=== PATIENT | male | born 1935 | race Caucasian/White ===

== ENCOUNTER 2018-01-24 12:12 | Observation (INO) | payer MEDICARE, BC ==
[2018-01-23 10:56] LABS: BASOPHILS # (AUTO) 0.1 (0.0-0.1); BASOPHILS % 0.6 % (0.0-1.0); EOSINOPHILS # (AUTO) 0.4 (0.0-0.4); EOSINOPHILS % 3.4 % (0.0-6.0); HEMATOCRIT 36.7 % (38.2-49.6); LYMPHOCYTES # (AUTO) 3.1 (1.0-3.2); LYMPHOCYTES % 25.6 % (18.0-39.1); MEAN CORPUSCULAR HEMOGLOBIN 32.3 pg (28-32); MEAN CORPUSCULAR HGB CONC 35.4 g/dL (31-35); MEAN CORPUSCULAR VOLUME 91.3 fL (81-99); MONOCYTES # (AUTO) 0.7 (0.2-0.8); MONOCYTES % 5.5 % (4.4-11.3); NEUTROPHILS # (AUTO) 7.7 (2.1-6.9); NEUTROPHILS % 64.1 % (38.7-80.0); PLATELET COUNT 236 x10e3/uL (140-360); RED BLOOD COUNT 4.02 x10e6/uL (4.3-5.7); RED CELL DISTRIBUTION WIDTH 13.7 % (11.7-14.4)
[2018-01-23 11:07] LABS: INR 1.03; PROTHROMBIN TIME 12.7 seconds (11.9-14.5)
[2018-01-23 11:17] LABS: ALBUMIN 3.7 g/dL (3.5-5.0); ALBUMIN/GLOBULIN RATIO 0.9 (0.8-2.0); ANION GAP 15.3 mmol/L (8-16); CALCIUM 9.8 mg/dL (8.4-10.2); CREATININE, SERUM 1.54 mg/dL (0.72-1.25); POTASSIUM 4.3 mmol/L (3.5-5.1)
[2018-01-24] VITALS (18 sets, daily range): BP systolic 75–171; BP diastolic 55–91
[~2018-01-24] VITALS: Ht 172.7 cm; Wt 93.9 kg
[~2018-01-24 12:12] MED LIST: ARTHRITIS PAIN650 M3 PO; ASPIR 8181 MG PO; ATORVASTATIN CA20 MG PO; FINASTERIDE5 MG PO; FUROSEMIDE PO; FUROSEMIDE40 MG PO; GLIMEPIRIDE2 MG PO; IBUPROFEN200 MG PO; KLOR-CON 88 MEQ PO; KLOR-CON PO; METFORMIN HCL500 MG PO; RAMIPRIL2.5 MG PO; SPIRONOLACTONE PO; TAMSULOSIN HCL0.4 MG PO; VERAPAMIL ER120 MG PO; VERAPAMIL ER240 MG PO; [UNRECOGNIZED DRUG - OTHER] TOP
[2018-01-24] MEDS ORDERED: VERAPAMIL HCL 2.5 MG/ML 2 ML VIAL ONE (15:49)
[2018-01-24] MEDS ORDERED: HEPARIN SOD (PORCINE) 1000 UNIT/ML 30ML ONE (15:49)
[2018-01-24] MEDS ORDERED: LIDOCAINE HCL 2% LOCAL 20 ML VIAL ONE (15:50)
[2018-01-24] MEDS ORDERED: MIDAZOLAM HCL 2 MG/2 ML VIAL ONE (15:50)
[2018-01-24] MEDS ORDERED: FENTANYL CITRATE/PF 100MCG/2 ML INJ ONE (15:50)
[2018-01-24] MEDS ORDERED: SODIUM CHLORIDE 0.9% 1000ML 1,000 ML ONE (15:51)
[2018-01-24] MEDS ORDERED: IOPAMIDOL 370 MG/ML 200 ML INFUS..BTL INJ ONE ×2 (15:51→17:24)
[2018-01-24] MEDS ORDERED: NITROGLYCERIN/D5W 200 MCG/ML 250 ML ONE (15:51)
[2018-01-24] MEDS ORDERED: HEPARIN SOD/SOD CHLORIDE 2,000 ML ONE (15:51)
[2018-01-24] MEDS ORDERED: PRASUGREL 10 MG TAB ONE (17:35)
[2018-01-24] MEDS ORDERED: ASPIRIN 325 MG TAB ONE (17:40)
[2018-01-24] MEDS ORDERED: DEXTROSE 50% SYRINGE 50 ML IV PRN (18:15)
--- NOTE | 2018-01-24 18:47 | Operative Report ---
DATE OF PROCEDURE: January 24, 2018 INDICATIONS 1. Coronary artery disease, unstable angina. 2. Congestive heart failure. PROCEDURES PERFORMED 1. Left heart catheterization. 2. Selective coronary angiography. 3. Right heart catheterization. 4. Stent placement in the proximal left anterior descending artery. 5. Deployment of right wrist transradial band. COMPLICATIONS: None. RECOMMENDATIONS: Dual antiplatelet therapy for at least 6 months. Access obtained in the right radial artery. A 5-[place]ruguayan sheath was placed. Access obtained in the right cephalic vein. A 6-[place] sheath was placed for balloon flotation. Right heart catheterization performed with findings as described below. Right atrial pressure 8 mmHg. Right ventricular pressure 38/4 mmHg. Pulmonary artery pressure 37/16 with a mean of 25 mmHg. Pulmonary capillary wedge pressure 11 mmHg. Cardiac output 4.8 L a minute. Cardiac index 2.3 L per minute per meter squared. Left heart catheterization demonstrated 80% proximal left anterior descending artery for which the patient received 10,000 units of intra-arterial heparin and ACT of 275. A short wire was advanced across the lesion for support. Primary stent 2.75 x 20 mm Synergy at 14 atmospheres. Excellent end result, less than 10% residual stenosis. CATHRYN-3 flow. No complications. Right wrist TR band applied. The 7-[place] sheath in the right brachial were removed under manual pressure. Patient observed in the hospital overnight. Discharged home the next day in stable condition. Job#: [id number] PADMINI
[2018-01-25] VITALS: BP 142/80
[2018-01-25] MEDS: INSULIN LISPRO 100 UNIT/1 ML 3ML VIAL SQ SCH ×3 (00:46→12:10)
[2018-01-25 01:00] VITALS: BP 132/78
[2018-01-25 04:00] VITALS: BP 121/65
[2018-01-25 07:40] VITALS: BP 109/53
[2018-01-25 09:30] VITALS: BP 109/53
[2018-01-25 11:24] VITALS: BP 148/63
[2018-01-25] MEDS ORDERED: FINASTERIDE 5 MG TAB PO SCH (13:00)
[2018-01-25] MEDS ORDERED: VERAPAMIL HCL 120 MG TABSR PO SCH (13:00)
[2018-01-25] MEDS ORDERED: TAMSULOSIN HCL 0.4 MG CAP PO SCH (13:00)
[2018-01-25] MEDS ORDERED: FUROSEMIDE 40 MG TAB PO SCH (13:00)
[2018-01-25] MEDS ORDERED: RAMIPRIL 2.5 MG CAP PO SCH (13:00)
[2018-01-25] MEDS ORDERED: POTASSIUM CHLORIDE 10 MEQ TABCR PO SCH (14:00)
[2018-01-25] MEDS ORDERED: POTASSIUM CHLORIDE 8 MEQ PO SCH (15:00)
[2018-01-25] MEDS ORDERED: GLIMEPIRIDE 2 MG TAB PO SCH (17:00)
[2018-01-25] MEDS ORDERED: ATORVASTATIN 20 MG TAB PO SCH (21:00)
== END 2018-01-25 14:23 | disposition home or self-care (01) ==
LOC: CATH LAB 12:12 → IMCU 22:54
PROVIDERS: ADMIT Internal Medicine Interventional Cardiology; ATTEND Internal Medicine Interventional Cardiology
DX: I25.110 Atherosclerotic heart disease of native coronary artery with unstable angina pectoris (principal); I27.20 Pulmonary hypertension, unspecified; I87.2 Venous insufficiency (chronic) (peripheral); I95.89 Other hypotension; I50.9 Heart failure, unspecified
CPT/HCPCS: 93454; C9600; 36415; 80053; 80061; 82948; 85025; 85610; 93451; C1766; C1874; G0378; J1644; J2001; J2250; J7030; Q9967

== ENCOUNTER → 2018-06-26 | Outpatient (CLI) | payer MEDICARE, BC ==
--- NOTE | 2018-07-02 22:41 | Pulmonary Function Test ---
DATE OF STUDY: PATIENT OF: Dr. Jackson. Restrictive spirometry. Forced vital capacity 1.98 L, 54% of predicted. FEV-1 of 1.66 L, 65% of predicted. FEV-1:FVC ratio 85%. FEF 25-75 is 118%. Diffusion capacity is markedly reduced 6.84, 27% of predicted, suggesting loss of alveolar units or ventilation perfusion balance. Lung volumes are reduced. Total lung capacity 3.54 L, 55% of predicted. Restriction may be secondary to morbid obesity, congestive heart failure, parenchymal pulmonary disease, neuromuscular disease, chest wall disease, pleural disease, or diaphragmatic disease. Clinical correlation required. Job#: [id number] CF
== END ==
LOC: RESP 09:02
PROVIDERS: ATTEND Internal Medicine Pulmonary Disease
DX: J84.10 Pulmonary fibrosis, unspecified (principal); M15.9 Polyosteoarthritis, unspecified
CPT/HCPCS: 86039; 94060; 94727; 94729

== ENCOUNTER 2018-11-01 12:11 | Observation (INO) | payer MEDICARE, BC ==
[~2018-11-01] VITALS: Ht 172.7 cm; Wt 86.2 kg
--- OUTSIDE RECORDS SUMMARY | 2018-11-01 12:15 | XMS REPORT ---
Author Author [facility] Address Unknown Phone Unavailable Care Team Providers Care Director Zone Name Role Phone KEON WOODSON Unavailable Unavailable Problems This patient has no known problems. Allergies, Adverse Reactions, Alerts This patient has no known allergies or adverse reactions. Medications This patient has no known medications. Results Test Description Test Time Test Comments Text Results Atomic Results Result Comments CT CHEST W 2018-04-12 13:24:00 [facility] [address] [address] Patient Name: NICOLETTE CLOUD MR #: [id number] : 1935 Age/Sex: 82/M Req #: [id number] Adm Physician: Ordered by: KEON WOODSON MD Report #: [id number] Location: CT Room/Bed: Procedure: [id number] CT/CT CHEST W Exam Date: 04/12/18 Exam Time: 1210 REPORT STATUS: Signed EXAMINATION: CT of the chest with contrast, PE protocol. TECHNIQUE: Spiral CT images of the chest were performed from the lung apices through the level of the adrenal glands after the IV administration of 100 cc of Isovue-370. Thin section reconstructions were obtained with special concentration on the pulmonary arteries. COMPARISON: <none> CLINICAL HISTORY:Shortness of breath DISCUSSION: Vasculature: The main pulmonary artery, right and left pulmonary arteries, and their visualized lobar and segmental branches are patent, without filling defect. The pulmonary outflow tract is of normal caliber. There is no ectasia or aneurysmal dilatation of the thoracic aorta. Atherosclerotic calcification of the aortic arch, tortuous great vessel origins, and [place] coronary arteries. Probable stent within the left anterior descending coronary artery. No pericardial effusion. Lungs: Diffuse lower lobe predominant groundglass and reticular opacities with a juxtapleural predominance and associated traction bronchiectasis. Mild honeycombing in the lung bases. Airways: Trachea, mainstem bronchi, and central lobar and signal bronchi are patent Pleura: <There is no evidence of pleural effusion or pneumothorax.> Heart and mediastinum: No axillary, hilar, or mediastinal lymphadenopathy. No pericardial effusion. Abdomen: Visualized portions of the liver and spleen are notable for calcified granulomata. The gallbladder has presumably been removed. Visualized pancreas and adrenals are unremarkable. Small duodenal diverticulum. Bones and soft tissues: Mild bilateral gynecomastia. Visualized portions of the thyroid gland are unremarkable. No osseous destructive lesions. Multilevel degenerative disc changes of the cervical and thoracic spine. IMPRESSION: No pulmonary embolus to the level of the segmental branch pulmonary arteries. 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 Atherosclerotic vascular disease. Signed by: Dr. Dle Bear M.D. on 04/12/2018 1:35 PM Dictated By: DEL BEAR MD [id number] Transcribed By: LINDSEY on 04/12/18 9070 COPY TO: KEON WOODSON MD
[2018-11-01] MEDS ORDERED: LOSARTAN POTASS25 MG PO (12:46)
[2018-11-01] MEDS ORDERED: METFORMIN HCL500 MG PO (12:46)
[2018-11-01] MEDS ORDERED: Tresiba SC (12:46)
[2018-11-01] MEDS ORDERED: TRADJENTA5 MG PO (12:46)
[2018-11-01] MEDS ORDERED: eliquis PO (12:46)
[2018-11-01] MEDS ORDERED: DIGOXIN125 MCG PO (12:46)
[2018-11-01] MEDS ORDERED: METOPROLOL SUCC50 MG PO (12:46)
[2018-11-01] MEDS ORDERED: ESBRIET PO (12:48)
[2018-11-01] MEDS ORDERED: ASPIR 8181 MG PO (12:48)
[2018-11-01 13:00] LABS: BASOPHILS # (AUTO) 0.1 (0.0-0.1); BASOPHILS % 0.7 % (0.0-1.0); EOSINOPHILS # (AUTO) 0.1 (0.0-0.4); EOSINOPHILS % 1.4 % (0.0-6.0); HEMATOCRIT 38.3 % (38.2-49.6); HEMOGLOBIN 12.9 g/dL (14.0-18.0); LYMPHOCYTES # (AUTO) 2.4 (1.0-3.2); LYMPHOCYTES % 24.3 % (18.0-39.1); MEAN CORPUSCULAR HEMOGLOBIN 29.8 pg (28-32); MEAN CORPUSCULAR HGB CONC 33.7 g/dL (31-35); MEAN CORPUSCULAR VOLUME 88.5 fL (81-99); MONOCYTES # (AUTO) 0.6 (0.2-0.8); MONOCYTES % 5.6 % (4.4-11.3); NEUTROPHILS # (AUTO) 6.7 (2.1-6.9); NEUTROPHILS % 67.2 % (38.7-80.0); PLATELET COUNT 184 x10e3/uL (140-360); RED BLOOD COUNT 4.33 x10e6/uL (4.3-5.7); RED CELL DISTRIBUTION WIDTH 14.1 % (11.7-14.4)
[2018-11-01 13:05] LABS: INR 0.92; PROTHROMBIN TIME 12.9 seconds (11.9-14.5)
[2018-11-01 13:06] LABS: PARTIAL THROMBOPLASTIN TIME 25.8 seconds (23.8-35.5)
[2018-11-01 13:14] LABS: ALBUMIN 3.3 g/dL (3.5-5.0); ALBUMIN/GLOBULIN RATIO 0.8 (0.8-2.0); ANION GAP 12.5 mmol/L (8-16); CALCIUM 9.1 mg/dL (8.4-10.2); CREATININE, SERUM 1.6 mg/dL (0.72-1.25); POTASSIUM 4.5 mmol/L (3.5-5.1)
[2018-11-01 13:20] LABS: CREATINE KINASE MB 1.5 ng/mL (0-5.0)
--- NOTE | 2018-11-01 14:00 | Diagnostic Imaging Report ---
CT BRAIN WO HISTORY: Syncope COMPARISON: None. Technique: Noncontrast axial scans were obtained from skull base to the vertex. Coronal and sagittal reconstructions obtained from the axial data. One or more of the following dose reduction techniques were used: Automated exposure control, adjustment of the mA and/or kV according to patient size, and/or utilization of iterative reconstruction technique. DISCUSSION: Scalp/Skull: Unremarkable. Brain sulci: Mildly prominent. Ventricles: Compensatory dilatation. Extra-axial spaces: No masses or fluid collections. Carotid siphon and vertebral artery calcifications are present. Parenchyma: Mild bilateral deep white matter hypodensity is likely chronic microvascular ischemic change. Otherwise, no masses, hemorrhage, or large vascular territory acute infarct. Dural sinuses: No abnormal densities. Sellar/Suprasellar region: Intact. Skull base: Intact. Incidental findings: Both ocular lenses are thinned. There is mild right sphenoid sinus mucosal thickening. IMPRESSION: 1. No acute intracranial abnormalities. 2. Mild supratentorial chronic microvascular ischemic change. Mild generalized cerebral volume loss. Signed by: Dr. Chuck Campoverde M.D. on 11/01/2018 1:56 PM
[2018-11-01] MEDS ORDERED: BACITRACIN ZINC 0.9GM TP ONE ×2 (15:12→15:15)
--- NOTE | 2018-11-01 17:44 | Diagnostic Imaging Report ---
CT CERVICAL SPINE WO HISTORY: Fall COMPARISON: Head CT from earlier today TECHNIQUE: CT of the cervical spine without contrast. Sagittal and coronal reformations were created. One or more of the following dose reduction techniques were used: Automated exposure control, adjustment of the mA and/or kV according to patient size, and/or utilization of iterative reconstruction technique. FINDINGS: Cervical lordosis is straightened. There is no significant scoliosis No fractures, compression deformity, or destructive osseous lesions are seen. The craniocervical junction is intact. No gross spinal canal masses are seen. The paravertebral and paraspinal soft tissues are unremarkable. Mild to moderate multilevel spondylosis is most prominent at C5-C6 and C6-C7. The C2 and C3 vertebral bodies are partially fused. Multilevel facet arthrosis is present, left side greater than right. There is associated grade 1 anterolisthesis of C7 on T1, T1 on T2, and T2 on T3. Advanced atlantoaxial arthrosis is present as well. There is mild scarring in the lung apices. There is a small calcified granuloma in the left upper lobe. Mild bilateral carotid bulb calcifications are present. IMPRESSION: 1. No acute osseous abnormalities. 2. Mild to moderate multilevel spondylosis, most prominent at C5-C6 and C6-C7. Signed by: Dr. Chuck Campoverde M.D. on 11/01/2018 5:40 PM
[2018-11-01] MEDS ORDERED: SODIUM CHLORIDE FLUSH 10 ML SYR INJ PRN (19:15)
[2018-11-01] MEDS ORDERED: MORPHINE SULFATE 2 MG/ML SYR 1ML IV PRN (19:15)
[2018-11-01] MEDS: FAMOTIDINE 20 MG TAB PO SCH (19:15)
[2018-11-01] MEDS ORDERED: NITROGLYCERIN 0.4 MG SUBL SL PRN (19:15)
--- NOTE | 2018-11-01 19:20 | NUR ---
Walking rounds with RAMA Macdonald. Patient in no distress at this time.
[2018-11-01] MEDS ORDERED: MORPHINE SULFATE INJ 4 MG/ML INJ 1ML IV PRN (19:30)
[2018-11-01] MEDS ORDERED: DEXTROSE 50% SYRINGE 50 ML IV PRN (19:45)
[2018-11-01] MEDS: INSULIN LISPRO 100 UNIT/1 ML 3ML VIAL SQ SCH (21:00)
[2018-11-01 21:07] VITALS: BP 135/62
--- NOTE | 2018-11-01 21:07 | NUR ---
RECEIVED PATIENT FROM E.R. VIA STRETCHER. ACCOMPANIED BY STAFF AND FAMILY MEMBER. PATIENT IS ALERT AND ORIENTED. NO COMPLAINT OF HEADACHE. ORIENTED PATIENT TO THE ROOM. CALL LIGHT WITHIN REACH.
[2018-11-01 21:45] VITALS: BP 135/67
[2018-11-01 22:45] VITALS: BP 135/62
--- NOTE | 2018-11-01 23:25 | NUR ---
PAGED DR. Teo MARTE FOR ORDERS. WAITING FOR RESPONSE.
[2018-11-02] VITALS: BP 138/63
[2018-11-02 01:38] LABS: CREATINE KINASE MB 1.8 ng/mL (0-5.0)
[2018-11-02 04:00] VITALS: BP 112/55
[2018-11-02 06:22] LABS: BASOPHILS # (AUTO) 0.1 (0.0-0.1); BASOPHILS % 0.7 % (0.0-1.0); EOSINOPHILS # (AUTO) 0.2 (0.0-0.4); EOSINOPHILS % 1.8 % (0.0-6.0); HEMATOCRIT 37.1 % (38.2-49.6); HEMOGLOBIN 12.4 g/dL (14.0-18.0); LYMPHOCYTES # (AUTO) 2.5 (1.0-3.2); LYMPHOCYTES % 26.5 % (18.0-39.1); MEAN CORPUSCULAR HEMOGLOBIN 29.7 pg (28-32); MEAN CORPUSCULAR HGB CONC 33.4 g/dL (31-35); MEAN CORPUSCULAR VOLUME 88.8 fL (81-99); MONOCYTES # (AUTO) 0.7 (0.2-0.8); MONOCYTES % 7.6 % (4.4-11.3); NEUTROPHILS # (AUTO) 5.9 (2.1-6.9); NEUTROPHILS % 62.8 % (38.7-80.0); PLATELET COUNT 188 x10e3/uL (140-360); RED BLOOD COUNT 4.18 x10e6/uL (4.3-5.7); RED CELL DISTRIBUTION WIDTH 14.1 % (11.7-14.4)
[2018-11-02 06:40] LABS: CREATINE KINASE MB 1.7 ng/mL (0-5.0)
[2018-11-02 07:04] LABS: ANION GAP 12.4 mmol/L (8-16); CALCIUM 9.3 mg/dL (8.4-10.2); CREATININE, SERUM 1.54 mg/dL (0.72-1.25); POTASSIUM 4.4 mmol/L (3.5-5.1)
[2018-11-02] MEDS: FAMOTIDINE 20 MG TAB PO SCH (07:15)
--- NOTE | 2018-11-02 07:16 | NUR ---
PT AWAKE RESP EVEN AND UNLABORED AT THIS TIME NO DISTRESS NOTED, PT EASILY AROUSED,. PT ABLE TO MAKE NEEDS KNOWN, FAMILY MEMBER AT BEDSIDE. CALL LIGHT IN REACH.
[2018-11-02] MEDS: INSULIN LISPRO 100 UNIT/1 ML 3ML VIAL SQ SCH ×2 (07:30→11:30)
[2018-11-02 07:31] LABS: CHOL/HDL RATIO 3.8 (3.9-4.7)
[2018-11-02 07:35] VITALS: BP 123/59
[2018-11-02 08:58] VITALS: BP 123/59
[2018-11-02] MEDS ORDERED: ASPIRIN 81 MG ENTERIC COATED PO SCH (09:00)
[2018-11-02 13:07] VITALS: BP 134/65
[2018-11-02 14:56] LABS: CREATINE KINASE MB 1.6 ng/mL (0-5.0)
--- NOTE | 2018-11-02 16:10 | NUR ---
PT DISCHARGE HOME, WITH FAMILY MEMBER WERE ADVISED TO FOLLOW UP WITH, PT AND BOTH VERBALIZE UNDERSTANDING, IV SITE REMOVED NO SWELLING NO REDNESS TO SITE.
--- NOTE | 2018-11-02 22:41 | Consultation ---
DATE OF CONSULTATION: Cardiology Consultation REASON FOR CONSULTATION: Syncope. HISTORY OF PRESENT ILLNESS: This is an 83-year-old man with a history of paroxysmal atrial fibrillation, coronary artery disease, status post percutaneous coronary intervention, pulmonary fibrosis, presented to emergency department after suffering a syncopal episode. The patient was in his backyard, lifting a very heavy bag of soil onto a cart. He started pushing the cart and felt lightheaded, dizzy, leaned over, became short of breath, and lost consciousness for approximately a minute. He denies any chest pain, palpitations, or pre-events. When he came to, he was not confused, did not report any cardiovascular symptoms. The patient does have chronic dyspnea due to his pulmonary fibrosis. Here, he was hemodynamically stable and has had three sets of negative cardiac enzymes. Recent workup as an outpatient in our clinic was unremarkable. REVIEW OF SYSTEMS: A 12-point review of system was conducted, is negative otherwise as stated above in the HPI. PAST MEDICAL HISTORY: As stated above in the HPI. PAST SURGICAL HISTORY: Percutaneous coronary intervention. SOCIAL HISTORY: No illicit drug, alcohol, or tobacco use. ALLERGIES: NO KNOWN DRUG ALLERGIES. MEDICATIONS: See medication reconciliation form. PAST FAMILY HISTORY: Unremarkable. PHYSICAL EXAMINATION: VITAL SIGNS: Temperature is 98, heart rate 67, respirations are 20, blood pressure is 123/59, and ox saturation 96% on 2 L nasal cannula. GENERAL: He is an elderly man, lying comfortably in bed. HEENT: Head is normocephalic, atraumatic. Eyes, the extraocular muscles are intact. Conjunctivae clear. NECK: No JVD. No bruits. CARDIOVASCULAR: Regular rate and rhythm. LUNGS: Clear to auscultation bilaterally. No wheezing or rales. ABDOMEN: Soft, nontender, and nondistended. Normoactive bowel sounds. EXTREMITIES: No clubbing, cyanosis, or edema. VASCULAR: 2+ pulses. SKIN: Warm, dry, and intact. NEUROLOGIC: No focal deficits noted. LABORATORY DATA: Reviewed. Creatinine 1.5. Troponin negative x3. Hemoglobin 12.4. Total electrocardiogram showed normal sinus rhythm. Telemetry monitoring revealed normal sinus rhythm. IMPRESSION: 1. Syncope. 2. Coronary artery disease, status post percutaneous coronary intervention. 3. Pulmonary fibrosis. 4. Paroxysmal atrial fibrillation. RECOMMENDATIONS: The patient likely lost consciousness due to orthostasis and/or poor venous return due to significant use of Valsalva maneuver while lifting his bag of soil. No cardiovascular cause at this point in time has been found. He remains in normal sinus rhythm, his total electrocardiogram shows no active changes, and his cardiac enzymes were within normal limits. An echocardiogram has been ordered. We will review this. However, the patient may be discharged from a cardiovascular standpoint on his current outpatient cardiac medications. DO JERALD Sanchez/MODL /[id number]
== END 2018-11-02 16:10 | disposition home or self-care (01) ==
LOC: ER 12:11 → ERHOLD 19:20 → MED/SURG 21:07
DX: R55 Syncope and collapse (principal); I48.0 Paroxysmal atrial fibrillation; I10 Essential (primary) hypertension; E11.9 Type 2 diabetes mellitus without complications; J44.9 Chronic obstructive pulmonary disease, unspecified; E78.5 Hyperlipidemia, unspecified; I25.10 Atherosclerotic heart disease of native coronary artery without angina pectoris; Z95.5 Presence of coronary angioplasty implant and graft; J84.10 Pulmonary fibrosis, unspecified; Z79.84 Long term (current) use of oral hypoglycemic drugs
CPT/HCPCS: 36415 ×2; 70450; 72125; 80048; 80053; 80061; 82550 ×2; 82553 ×2; 82948 ×2; 84484 ×2; 85025 ×2; 85610; 85730; 93005; 93306; 97139; 99284; G0378 ×2

== ENCOUNTER 2019-10-11 02:24 | Emergency (ER) | payer MEDICARE, BC ==
[~2019-10-11] VITALS: Ht 172.7 cm; Wt 86.2 kg
[~2019-10-11 02:24] MED LIST changes: +DIGOXIN125 MCG PO; +ESBRIET PO; +LOSARTAN POTASS25 MG PO; +METOPROLOL SUCC50 MG PO; +TRADJENTA5 MG PO; +Tresiba SC; +eliquis PO
[2019-10-11] MEDS ORDERED: DOCUSATE SODIUM 100 MG CAP ONE (03:02)
[2019-10-11] MEDS ORDERED: LORAZEPAM INJ 2 MG/ML VIAL IV ONE (03:15)
[2019-10-11] MEDS ORDERED: DOCUSATE SODIUM 100 MG CAP PO STA (03:31)
[2019-10-11] MEDS ORDERED: DOCUSATE SODIUM LIQD 100 MG/10 ML UDC ONE ×2 (03:42→03:43)
[2019-10-11] MEDS ORDERED: AMIODARONE HCL 360MG 200 ML IV ONE (04:39)
[2019-10-11] MEDS ORDERED: AMIODARONE HCL 150MG 100 ML ONE (04:39)
--- NOTE | 2019-10-11 04:44 | NUR ---
PATIENT HAD AN EPISODE OF AFIB RVR GOING TO PULSES OF 180-190 FOR ABOUT 10 SECONDS. PATIENT THEN RETURNED TO PULSE RANGES 130-150. IV AMIODORONE WAS STARTED, MD AND NURSING STAFF AT BEDSIDE
[2019-10-11] MEDS ORDERED: AMIODARONE HCL 150 MG/100 ML BAG IV ONE (04:45)
[2019-10-11] MEDS ORDERED: AMIODARONE HCL 150MG 100 ML IV SCH (05:15)
[2019-10-11] MEDS ORDERED: AMIODARONE HCL 360MG 200 ML IV SCH ×2 (05:15→06:00)
[2019-10-11 07:33] LABS: BASOPHILS # (AUTO) 0.1 (0.0-0.1); BASOPHILS % 0.3 % (0.0-1.0); EOSINOPHILS % 0.1 % (0.0-6.0); LYMPHOCYTES # (AUTO) 1.1 (1.0-3.2); LYMPHOCYTES % 4.1 % (18.0-39.1); MEAN CORPUSCULAR HEMOGLOBIN 30.8 pg (28-32); MEAN CORPUSCULAR VOLUME 96.3 fL (81-99); MONOCYTES # (AUTO) 0.9 (0.2-0.8); MONOCYTES % 3.3 % (4.4-11.3); NEUTROPHILS # (AUTO) 24.1 (2.1-6.9); NEUTROPHILS % 91.6 % (38.7-80.0); PLATELET COUNT 281 x10e3/uL (140-360); RED BLOOD COUNT 5.19 x10e6/uL (4.3-5.7); RED CELL DISTRIBUTION WIDTH 13.2 % (11.7-14.4)
[2019-10-11 07:53] LABS: ALBUMIN 2.9 g/dL (3.5-5.0); ALBUMIN/GLOBULIN RATIO 0.6 (0.8-2.0); ANION GAP 15.3 mmol/L (8-16); CALCIUM 10.3 mg/dL (8.4-10.2); CREATININE, SERUM 1.26 mg/dL (0.72-1.25); POTASSIUM 4.3 mmol/L (3.5-5.1)
[2019-10-11 08:01] LABS: CREATINE KINASE MB 1.8 ng/mL (0-5.0)
--- NOTE | 2019-10-11 08:08 | NUR ---
REPORT GIVEN IN FULL TO DUSTY MUÑIZ, DNAR CONSENT SIGNED.
[2019-10-11 08:33] LABS: LYMPHOCYTES % (MANUAL) 7 % (19-48); MONOCYTES % (MANUAL) 6 % (3.4-9.0); NEUTROPHILS % (MANUAL) 83 % (40-74); PLATELET ESTIMATE ADEQUATE; RBC MORPHOLOGY COMMENT NORMAL
--- NOTE | 2019-10-11 08:37 | NUR ---
Pt noted to be apneic, in asystole, no pulse noted. Dr. Godfrey at bedside. Pt pronounced at this time.
--- NOTE | 2019-10-11 08:56 | NUR ---
SPOKE WITH SHE STATES HER NEIGHBOR USED TRADITIONS AND SIGNED CHOICE FILED IN CHART. CONTACTED REP AND SHE WILL BE IN BUILDING IN APPROX 30 -45 MINUTES.
[2019-10-11 09:34] LABS: ABG PCO2 119 mmHg (41-51); ABG PH 7.19 (7.31-7.41)
[2019-10-11 09:35] LABS: ABG PO2 75 mmHg (80-105)
[2019-10-11 09:40] LABS: ABG HCO3 46 mmol/L (23-28)
--- NOTE | 2019-10-11 09:57 | NUR ---
[facility] notified, spoke to Sheree Rufino, stated not a canidate for donation or organ transplant, eyes/cornea, or tissue transplant. Addendum: 10/11/19 at 1823 by [email or web address] Case #: [id number]
--- NOTE | 2019-10-11 11:34 | NUR ---
Channel Lip Wetter released at this time, spoke with Tete Menjivar field operations manager releasing case. Case #: [id number].
--- NOTE | 2019-10-11 13:41 | NUR ---
home transport arrived at this time.
--- NOTE | 2019-10-11 14:02 | NUR ---
Pt shirt, blanket, light, and pulse oximetry given to spouse. Spouse notified that the towels that arrived under the patient were soiled with bodily fluids, stated did not want to take them home. No other belongings left behind, spouse and daughter present and reviewed room as well.
== END 2019-10-11 14:02 | disposition expired ==
LOC: ER 02:24
DX: J96.01 Acute respiratory failure with hypoxia (principal); J96.02 Acute respiratory failure with hypercapnia; Z66 Do not resuscitate; J84.112 Idiopathic pulmonary fibrosis; I10 Essential (primary) hypertension; E11.9 Type 2 diabetes mellitus without complications; I48.91 Unspecified atrial fibrillation; E78.5 Hyperlipidemia, unspecified
CPT/HCPCS: 36415; 36600; 80053; 82550; 82553; 82805; 84484; 85025; 93005; 99284; J2060